=== PATIENT | male | born 1985 | race American Indian/Alaskan Native ===

== ENCOUNTER 2019-11-29 21:05 | Emergency (ER) | payer BC ==
--- NOTE | 2019-11-29 23:16 | XRay Report ---
RIGHT HAND 2 VIEWS INDICATION / CLINICAL INFORMATION: right hand swelling COMPARISON: None available. FINDINGS: BONES / JOINT(S): No acute fracture or subluxation. No significant arthritis. SOFT TISSUES: There is significant soft tissue swelling in the hand. No radiopaque foreign bodies are seen. ADDITIONAL FINDINGS: None. Signer Name: Grey Fried MD Signed: 11/29/2019 11:12 PM Workstation Name: [id number]
[2019-11-29 23:32] LABS: Hematocrit 33.9 % (35.5-45.6); Hemoglobin 11.4 gm/dl (11.8-15.2); Mean Corpuscular HGB Conc 34 % (32-34); Mean Corpuscular Volume 76 fl (84-94); Platelet Count 472 K/mm3 (140-440); Red Blood Count 4.45 M/mm3 (3.65-5.03)
[2019-11-29 23:43] LABS: Alanine Aminotransferase 12 units/L (7-56); Albumin 4.1 g/dL (3.9-5); BUN/Creatinine Ratio 7; Blood Urea Nitrogen 5 mg/dL (9-20); Calcium 9.6 mg/dL (8.4-10.2); Hemolysis Index 0
[2019-11-29] MEDS ORDERED: methylPREDNISolone Sod Succinate 125 MG/2 ML INJ IV ONE (23:55)
[2019-11-29] MEDS ORDERED: CLINDAMYCIN 600 MG/50 mL 600 MG/50 ML BAG IV STA (23:56)
--- NOTE | 2019-11-30 03:02 | Emergency Department Report ---
- General Chief complaint: Extremity Injury, Upper Stated complaint: SWOLLEN RT HAND Time Seen by Provider: 11/29/19 23:55 Source: patient Mode of arrival: Ambulatory Limitations: Language Barrier - Related Data Previous Rx's Medication Instructions Recorded Last Taken Type Clindamycin [Clindamycin CAP] 150 mg PO Q6HR #40 capsule 11/30/19 Unknown Rx Ketorolac [Toradol] 10 mg PO Q6H PRN #14 tablet 11/30/19 Unknown Rx Allergies Allergy/AdvReac Type Severity Reaction Status Date / Time No Known Allergies Allergy Verified 11/29/19 21:44 Abscess Boil HPI - HPI Chief Complaint: Extremity Injury, Upper Stated Complaint: SWOLLEN RT HAND Time Seen by Provider: 11/29/19 23:55 Home Medications: Previous Rx's Medication Instructions Recorded Last Taken Type Clindamycin [Clindamycin CAP] 150 mg PO Q6HR #40 capsule 11/30/19 Unknown Rx Ketorolac [Toradol] 10 mg PO Q6H PRN #14 tablet 11/30/19 Unknown Rx Allergies/Adverse Reactions: Allergies Allergy/AdvReac Type Severity Reaction Status Date / Time No Known Allergies Allergy Verified 11/29/19 21:44 ED Review of Systems ROS: Stated complaint: SWOLLEN RT HAND Other details as noted in HPI Comment: All other systems reviewed and negative ED Past Medical Hx - Past Medical History Previous Medical History?: Yes Hx HIV: Yes - Surgical History Past Surgical History?: Yes Additional Surgical History: biopsy on growth on neck - Social History Smoking Status: Never Smoker Substance Use Type: None - Medications Home Medications: Home Medications Medication Instructions Recorded Confirmed Last Taken Type Clindamycin [Clindamycin CAP] 150 mg PO Q6HR #40 capsule 11/30/19 Unknown Rx Ketorolac [Toradol] 10 mg PO Q6H PRN #14 tablet 11/30/19 Unknown Rx ED Physical Exam - General Limitations: Language Barrier General appearance: alert, in no apparent distress - Head Head exam: Present: atraumatic, normocephalic - Eye Eye exam: Present: normal appearance - ENT ENT exam: Present: mucous membranes moist - Neck Neck exam: Present: normal inspection - Respiratory Respiratory exam: Present: normal lung sounds bilaterally. Absent: respiratory distress - Cardiovascular Cardiovascular Exam: Present: regular rate, normal rhythm. Absent: systolic murmur, diastolic murmur, rubs, gallop - GI/Abdominal GI/Abdominal exam: Present: soft, normal bowel sounds - Rectal Rectal exam: Present: deferred - Extremities Exam Extremities exam: Present: normal inspection, tenderness, pedal edema - Expanded Upper Extremity Exam Right Hand Wrist exam: Present: tenderness, swelling, erythema - Back Exam Back exam: Present: normal inspection - Neurological Exam Neurological exam: Present: alert, oriented X3 - Psychiatric Psychiatric exam: Present: normal affect, normal mood - Skin Skin exam: Present: warm, dry, intact, normal color. Absent: rash ED Course Vital Signs 11/29/19 22:39 Temperature 99.1 F Pulse Rate 100 H Respiratory 18 Rate Blood Pressure 147/102 O2 Sat by Pulse 98 Oximetry ED Medical Decision Making - Lab Data Result diagrams: 11/29/19 23:02 11/29/19 23:02 Critical care attestation.: If time is entered above; I have spent that time in minutes in the direct care of this critically ill patient, excluding procedure time. ED Disposition Disposition: DC-01 TO HOME OR SELFCARE Condition: Stable Instructions: Cellulitis (ED) Additional Instructions: Please be sure to follow-up for wound reevaluation in 48 hours Prescriptions: Clindamycin [Clindamycin CAP] 150 mg PO Q6HR #40 capsule Ketorolac [Toradol] 10 mg PO Q6H PRN #14 tablet PRN Reason: Pain Referrals: [facility] [Provider Group] - 3-5 Days ECTOR JENKINS MD [Staff Physician] - 3-5 Days
[2019-11-30 03:09] VITALS: BP 139/93
[2019-11-30 03:36] LABS: Total Cells Counted 100
[2019-11-30 03:37] LABS: Basophils % (Manual) 0 % (0.0-1.8); Hypochromasia Few; Platelet Estimate Consistent w Auto; Target Cells Few
== END 2019-11-30 03:06 | disposition home or self-care (01) ==
LOC: ED 21:05
DX: M25.441 Effusion, right hand (principal); Z21 Asymptomatic human immunodeficiency virus [HIV] infection status; Z98.890 Other specified postprocedural states; Z79.899 Other long term (current) drug therapy
CPT/HCPCS: 36415; 73120; 80053; 82140; 85007; 85025; 87040; 96365; 96375; 99284; J2930

== ENCOUNTER 2020-05-02 19:48 | Emergency (ER) | payer BC ==
[2020-05-02 22:13] LABS: Hematocrit 41.9 % (35.5-45.6); Hemoglobin 13.8 gm/dl (11.8-15.2); Mean Corpuscular HGB Conc 33 % (32-34); Mean Corpuscular Volume 81 fl (84-94); Platelet Count 282 K/mm3 (140-440); Red Blood Count 5.21 M/mm3 (3.65-5.03)
[2020-05-02 22:23] LABS: BUN/Creatinine Ratio 14; Blood Urea Nitrogen 11 mg/dL (9-20); Calcium 8.3 mg/dL (8.4-10.2); Hemolysis Index 14
[2020-05-02 22:47] LABS: Hypochromasia Few; Target Cells Few; Total Cells Counted 100
== END 2020-05-02 23:00 | disposition left against medical advice (07) ==
LOC: ED 19:48
DX: R50.9 Fever, unspecified (principal); Z53.21 Procedure and treatment not carried out due to patient leaving prior to being seen by health care provider
CPT/HCPCS: 36415; 80048; 85007; 85025

== ENCOUNTER 2020-06-07 16:04 | Emergency (ER) | payer SELFPAY | END 2020-06-07 16:11 | disposition left against medical advice (07) | LOC: ED 16:04 | DX: B02.9 Zoster without complications (principal); Z53.21 Procedure and treatment not carried out due to patient leaving prior to being seen by health care provider ==